=== PATIENT | male | born 1960 | race Caucasian/White ===

== ENCOUNTER 2022-11-22 06:26 | Day surgery (SDC) | payer BC ==
[~2022-11-22 06:26] MED LIST: Lactated Ringers 1,000 ML IV SCH
[2022-11-22] MEDS ORDERED: Lactated Ringers 1,000 ML IV SCH (07:00)
[2022-11-22] MEDS ORDERED: Propofol 200 MG/20 ML SDV ONE ×2 (07:52→07:59)
[2022-11-22] MEDS ORDERED: fentaNYL 100 MCG/2 ML SDV ONE (07:52)
[2022-11-22 09:08] VITALS: BP 132/89; PULSE 76
== END 2022-11-22 09:25 | disposition home or self-care (01) ==
LOC: VM.SDS 06:26
PROVIDERS: ATTEND Student in an Organized Health Care Education/Training Program
DX: Z12.11 Encounter for screening for malignant neoplasm of colon (principal); D12.0 Benign neoplasm of cecum; J30.9 Allergic rhinitis, unspecified; F41.9 Anxiety disorder, unspecified; F32.A Depression, unspecified; E66.9 Obesity, unspecified; R73.01 Impaired fasting glucose; Z68.37 Body mass index [BMI] 37.0-37.9, adult; Z98.890 Other specified postprocedural states; Z87.891 Personal history of nicotine dependence; Z80.0 Family history of malignant neoplasm of digestive organs; Z91.048 Other nonmedicinal substance allergy status
CPT/HCPCS: 00812; J2704; J3010; J7120

== ENCOUNTER 2025-04-06 16:38 | Emergency (ER) | payer OTHER, MEDICARE ==
[2025-04-06] MEDS: HYDROmorphone 0.5 MG/0.5 ML Syringe IVPUSH ONE (16:57)
[2025-04-06 17:00] LABS: BASOPHILS PERCENT AUTO 0.3 % (0.2-1.2); EOSINOPHILS PERCENT AUTO 0.4 % (0.0-4.0); HEMATOCRIT 41.9 % (40.0-52.0); HEMOGLOBIN 14.8 g/dL (14.0-18.0); IMMATURE GRAN ABSOLUTE AUTO 0.06 x10^3/uL (0.00-0.07); LYMPHOCYTES ABSOLUTE AUTO 1.2 x10^3/uL (1.0-4.8); LYMPHOCYTES PERCENT AUTO 10.9 % (25.0-50.0); MEAN CORPUSCULAR HEMOGLOBIN 29.2 pg (26.0-32.0); MEAN CORPUSCULAR HGB CONC 35.3 g/dL (32.0-36.0); MEAN CORPUSCULAR VOLUME 82.8 fL (78.0-93.0); MONOCYTES ABSOLUTE AUTO 0.5 x10^3/uL (0.0-0.8); MONOCYTES PERCENT AUTO 4.8 % (2.0-11.0); NEUTROPHILS ABSOLUTE AUTO 8.8 x10^3/uL (1.8-7.7); PLATELET COUNT,PLT 210 x10^3/uL (130-400); RED BLOOD CELL COUNT 5.06 x10^6/uL (4.5-6.0); WHITE BLOOD CELL COUNT,WBC 10.6 x10^3/uL (4.0-10.0)
[2025-04-06] MEDS: Iopamidol 612 MG/ML 100 ML Bottle IVPUSH ONE (17:05)
[2025-04-06 17:21] LABS: A/G RATIO 1.42; ALANINE AMINOTRANSFERASE,ALT 84 U/L (16-63); ALBUMIN 4.4 g/dL (3.4-5.0); ALKALINE PHOSPHATASE 59 U/L (46-116); ANION GAP 17.2 mmol/L (5-15); ASPARTATE AMNIOTRANSFERASE,AST 40 U/L (15-37); BILIRUBIN TOTAL 0.4 mg/dL (0.2-1.0); BLOOD UREA NITROGEN,BUN 20 mg/dL (7-18); CALCIUM 9.5 mg/dL (8.5-10.1); CARBON DIOXIDE,CO2 25 mmol/L (21-32); CHLORIDE,CL 103 mmol/L (98-107); CREATININE 1.2 mg/dL (0.70-1.30); GLUCOSE RANDOM 149 mg/dL (70-99); INR 1.1 (0.9-1.1); POTASSIUM,K 4.2 mmol/L (3.5-5.1); PROTEIN TOTAL,TP 7.5 g/dL (6.4-8.2); PROTHROMBIN TIME 11.6 SEC (9.6-12.0); PTT,PARTIAL THROMBOPLSTIN TIME 22.2 SEC (23.5-33.2); SODIUM,NA 141 mmol/L (136-145)
[2025-04-06 17:22] LABS: ESTIMATED GFR 66 mL/min (>=60); ETHANOL BLOOD MEDICAL < 3 mg/dL (0-3)
== END 2025-04-06 17:17 | disposition short-term general hospital (02) ==
LOC: VM.ED 16:38
DX: S22.42XA Multiple fractures of ribs, left side, initial encounter for closed fracture (principal); S27.0XXA Traumatic pneumothorax, initial encounter; Z91.09 Other allergy status, other than to drugs and biological substances; Z79.899 Other long term (current) drug therapy; V86.56XA Driver of dirt bike or motor/cross bike injured in nontraffic accident, initial encounter; Y93.55 Activity, bike riding
CPT/HCPCS: 80053; 80307; 85025; 85610; 85730; 96374; 99284; 99285-25; J1171